=== PATIENT | female | born 1955 ===

== ENCOUNTER 2022-04-08 06:55 | Day surgery (SDC) | payer BC, SELFPAY ==
[2022-04-08] MEDS: Tropicam./Phenyleph. (1/2.5%) 5 ML BTL OD ×3 (07:19→07:32)
[2022-04-08 07:20] VITALS: BP 149/89; PULSE 56; RESP 16; TEMP 36.4; O2SAT 98
--- NOTE | 2022-04-08 07:34 | W.ANESPRE ---
General Info Date of Service Date Performed: 04/08/22 Height: 5 ft 1 in Weight: 74.4 kg Body Mass Index (BMI): 30.9 Surgical Procedure: Operation Date: 04/08/22 08:40 Proposed Procedure Side Surgeon p Cataract Extraction with IOL Implant Right Sly Ugalde MD Meds Allergies and Home Medications Allergies Allergy/AdvReac Type Severity Reaction Status Date / Time pregabalin AdvReac Mild Skin Rash Verified 04/08/22 07:16 Home Medication Medication Instructions Recorded acetaminophen 500 mg tablet 1,000 mg PO Q8H PRN 04/05/22 acyclovir 200 mg capsule 200 mg PO TID PRN 04/05/22 aspirin 81 mg tablet,delayed 81 mg PO DAILY 04/05/22 release fluticasone propionate 110 1 puff inhalation BID PRN 04/05/22 mcg/actuation HFA aerosol inhaler (Flovent HFA) ibuprofen 400 mg tablet 400 mg PO Q6H 04/05/22 latanoprost 0.005 % eye drops 1 drp ophthalmic (eye) QPM 04/05/22 omega-3 fatty acids 1,000 mg PO DAILY 04/05/22 pimecrolimus 1 % topical cream 1 applic topical BID 04/05/22 (Elidel) cholecalciferol (vitamin D3) 25 25 mcg PO DAILY 04/07/22 mcg (1,000 unit) capsule (Vitamin D3) Current Visit Medications: Current Medications Generic Name Dose Route Start Last Admin Trade Name Freq PRN Reason Stop Dose Admin Acetaminophen 1,000 mg 04/08/22 06:00 Acetaminophen 500 Mg Tab PO Q4H PRN PRN Miscellaneous Medication 0 ml 04/08/22 06:00 Prednisolone 1%, Moxifloxacin 0.5%, Nepafenac 0.1% 5ml Btl OD DIRECTED MARIEL Miscellaneous Medication 0 ml 04/08/22 06:00 04/08/22 07:32 Tropicam./Phenyleph. (1/2.5%) 5 Ml Btl OD 1 drp DIRECTED MARIEL Administration Tetracaine HCl 0 ml 04/08/22 06:00 Tetracaine 0.5% 4 Ml Btl OD DIRECTED MARIEL PFSH Medical History Medical History Acquired musculoskeletal deformity pt. denies Adjustment disorder with depressed mood Glaucoma Herpes simplex HTN (hypertension) Hyperglycemia Hyperlipidemia Lichen sclerosus et atrophicus Overweight Sleep disorder Tracheobronchitis Vitamin D deficiency Surgical History Surgical History (Updated 04/08/22 @ 07:17 by Adry Maradiaga) H/O colectomy History of knee surgery Right. S/P operative procedure on shoulder RTCR (R) Tobacco Smoking/Tobacco Use Status: Never Alcohol Alcohol Intake: current Alcohol intake frequency: a few times a week Alcohol type: beer, wine and hard liquor Substance Use Substance use: Never Substance use type: does not use Vital Signs and Lab Results Vital Signs Most Recent Vital Signs in EMR: Most Recent Vital Signs Temp Pulse Resp BP Pulse Ox 36.4 C L 56 L 16 149/89 H 98 04/08/22 07:20 04/08/22 07:20 04/08/22 07:20 04/08/22 07:20 04/08/22 07:20 Lab Results Blood Type / Crossmatch: No Data to Display Complete Blood Count: No Data to Display Complete Metabolic Panel: No Data to Display Liver Function Panel: No Data to Display Coagulation Panel: No Data to Display Cardiac Panel: No Data to Display Arterial Blood Gas: No Data to Display Venous Blood Gas: No Data to Display Pancreas Panel: No Data to Display Thyroid Panel: No Data to Display Infectious Disease: No Data to Display Blood Cultures: No Data to Display Toxicology Panel: No Data to Display Anesthesia Assessment and Plan Anesthesia History Personal History: PONV Family History: No Family History of Anesthesia Complications Exercise Tolerance Exercise Tolerance: Metabolic Equivalents>4 Pertinent Negatives Pertinent Negatives: No Symptoms of GERD, No Major Cardiovascular Symptoms or Complaints and No Major Pulmonary Symptoms or Complaints Cardiac & Pulmonary Exam Cardiac Exam: Normal S1/S2 Heart Sounds Pulmonary Exam: Clear Bilateral Breath Sounds Implantable Cardiac Device Does patient have a Pacemaker or an ICD?: No Airway Exam Known Difficult Airway: No Mallampati Class: 1 Mouth Opening: Normal (> 3cm) Thyromental Distance: Greater than 3 cm Neck Range of Motion: Full ROM Neck Circumference: Normal Teeth Condition: Normal Dentition ASA Classification ASA Score: ASA 2 Emergency Case?: No NPO Status NPO Status: NPO Clears >2 hours, Solids >8 hours Anesthesia Plan Resuscitation Status: Full Code Anesthesia Technique: MAC Anesthesia Airway Planned: Natural Airway Monitors Used: Standard Monitors
[2022-04-08 07:36] VITALS: BMI 30.9
[2022-04-08] MEDS: Tetracaine 0.5% 4 ML BTL OD (08:19)
[2022-04-08] MEDS: Balanced Salt Soln.-PLUS 500 ML BAG (08:20)
[2022-04-08] MEDS: Duovisc Viscoelastic System EACH 1 EACH (08:20)
[2022-04-08] MEDS: Lidocaine 2% Jelly 6 ML SYR (08:22)
[2022-04-08] MEDS: Povidone-Iodine Ophth 30 ML BTL (08:23)
[2022-04-08 08:39] VITALS: BP 145/79; PULSE 55; RESP 16; TEMP 36.4; O2SAT 100
--- NOTE | 2022-04-08 08:40 | PDOC.DSDIS_ITS ---
Discharge Plan Disposition Patient Disposition: HOME Condition: Good Discharge Details Attending Provider: Sly Ugalde Primary Care Provider: Tevin Gutierrez Medanales Meds and New Rx's Prescriptions: No Action latanoprost 0.005 % Drops 1 drp OPHTHALMIC (EYE) QPM pimecrolimus [Elidel] 1 % Cream 1 applic TOPICAL BID aspirin [Aspir-81] 81 mg Tablet,Delayed Release (Dr/Ec) 81 mg PO DAILY acetaminophen 500 mg Tablet 1,000 mg PO Q8H PRN ibuprofen 400 mg Tablet 400 mg PO Q6H acyclovir 200 mg Capsule 200 mg PO TID PRN fluticasone propionate [Flovent HFA] 110 mcg/actuation Hfa Aerosol Inhaler 1 puff INHALATION BID PRN Fish Oil Capsule 1,000 mg PO DAILY cholecalciferol (vitamin D3) [Vitamin D3] 25 mcg (1,000 unit) Capsule 25 mcg PO DAILY Discharge Instructions Stand Alone Forms: Post-op Topical Cataract, Peter Kruger ([facility]) Discharge Orders Discharge Orders: Discharge Order (Routine); Ordered 04/08/22 Ordered By: Sly Ugalde DS: Diagnosis Discharge Diagnosis (1) Cortical cataract of right eye: Status: Resolved (2) Nuclear sclerotic cataract of right eye: Status: Resolved (3) Posterior subcapsular age-related cataract, right eye: Status: Resolved
--- NOTE | 2022-04-08 08:41 | W.PM.OP ---
Date of service: 04/08/22 Time of Service: 08:41 Operative Note Operative Note DATE OF PROCEDURE: 04/08/22 PRE-OP DIAGNOSIS: Nuclear/cortical/posterior subcapsular cataract, right eye Pseudoexfoliation glaucoma, right eye POST-OP DIAGNOSIS: same PROCEDURE: Cataract extraction using phacoemulsification with intraocular lens implant, right eye SURGEON: Sly Ugalde ANESTHESIA TYPE: Local By Surgeon and MAC Refer to Anesthesia Record ESTIMATED BLOOD LOSS: 0 PATHOLOGY: none sent COMPLICATIONS: None Patient was transported to: same day Patient's condition: stable Implants: [employer]/TATI Tecnis [id number] Indications: Progressive visual loss due to cataract, right eye Procedure Description: CATARACT SURGERY OPERATIVE REPORT PREOPERATIVE DIAGNOSIS: 1. Nuclear/cortical/posterior subcapsular cataract, right eye Pseudoexfoliation glaucoma, right eye POSTOPERATIVE DIAGNOSIS: Same OPERATION: 1. Cataract extraction using phacoemulsification with posterior chamber intraocular lens implant, right eye. 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 The option of cataract surgery was offered to the patient and she wished to proceed. PROCEDURE: The correct surgical eye was identified and marked as the right eye and the pupil was dilated in the preoperative area using mydriatics and cycloplegics. The dilated pupil size was 6.5 mm. She elected to proceed without sedation. The patient was brought to the operating room where cardiopulmonary monitoring was instituted and surgical time-out was performed, confirming the correct operative eye and IOL power. Topical anesthesia was administered and ophthalmic povidone-iodine 5% was instilled into the conjunctival fornices. Lidocaine gel was applied to the cornea and the johnnie-ocular area was prepped with Betadine 10% solution and draped in the usual sterile fashion for intraocular surgery, including an aperture drape. A Tegaderm transparent film dressing was cut in half and used to cover the lashes and lid margins. Care was taken to sequester the lashes and lid margins under the Tegaderm dressing. A lid speculum was placed between the lids of the operative eye and the Russell Lux[employer] Rev[employer] operating microscope was maneuvered into position. Lane scissors were then used to make a conjunctival buttonhole approximately 6mm posterior to the limbus in the inferonasal quadrant. Blunt dissection was carried out to expose bare sclera, and a blunt-tipped sub-tenon?s anesthesia cannula was introduced and passed posteriorly along the globe where non-preserved plain lidocaine was injected into posterior sub-Tenon?s space. A sideport knife was used to make a paracentesis port inferotemporally. Intraocular phenylephrine/lidocaine was injected into the anterior chamber. The anterior chamber was filled with viscoelastic. A 2.4mm keratome knife was used to construct a 2-plane near-clear corneal tunnel extending 2.0mm into clear cornea superiortemporally. A flap was raised on the anterior capsule and capsulorhexis forceps were used to complete a continuous curvilinear capsulorhexis of 5.0 mm. A significant amount of pseudoexfoliation material was present on the anterior lens capsule, but the zonular integrity was good. Balanced salt solution was then used to perform cortical cleaving hydrodissection and nuclear hydrodelineation until the lens could be freely rotated within the capsular bag. The lens nucleus was then disassembled and removed within the capsular bag and iris plane using phacoemulsification. Residual cortical material was removed using the I/A handpiece. The posterior capsule was carefully polished to remove as much residual lens epithelial cells as safely possible. Fairly extensive polishing of the posterior capsule was done, there was some residual posterior subcapsular opacity temporally, just outside the visual axis which could not be safely removed. Extensive polishing of the underside of the anterior capsule was also undertaken in attempt to prevent capsular phimosis. The capsular bag was then inflated and the anterior chamber deepened with viscoelastic. The lens implant described above was inserted into the capsular bag using the TATI [place] Injector. A Kuglen hook was used to dial the IOL into position. Residual viscoelastic was then removed first from posterior to the IOL, then from the anterior chamber using the I/A handpiece. The lens implant was noted to center nicely within the capsular bag. The incisions were stromally hydrated, and the anterior chamber was reformed using BSS. Then 0.5cc of moxifloxacin 1.0mg/ml were injected into the capsular bag and anterior chamber. The incisions were checked with a Weck spear and found to be secure. Several drops of ophthalmic povidone-iodine 5% were then applied to the eye followed by two drops of Imprimis combination prednisolone/moxifloxacin/nepafenac solution. The drapes were removed and a clear plastic protective eye shield was placed over the eye. The patient was then returned to [facility] Day Surgery in stable condition.
--- NOTE | 2022-04-08 09:10 | W.ANESPOSTOP ---
Postoperative Evaluation Date, Time and Location Date Performed: 04/08/22 Time Performed: 08:45 Patient Location: Day Surgery Unit Vital Signs Most Recent Imported Vital Signs: Most Recent Vital Signs Temp Pulse Resp BP Pulse Ox 36.4 C L 55 L 16 145/79 H 100 04/08/22 08:39 04/08/22 08:39 04/08/22 08:39 04/08/22 08:39 04/08/22 08:39 Pain Score Most Recent Pain Score: Most Recent Pain Score Pain Level 0 04/08/22 08:39 Assessment Mental Status: Awake (Alert & Oriented to Patient Baseline) Airway and Respiratory Function: Patent airway with normal (patient baseline) respiratory exam Cardiovascular Function: Hemodynamically Stable Hydration Status: Adequately Hydrated Nausea & Vomiting: No Nausea or Vomiting Pain: Pt. Denies Any Pain Peripheral Nerve Block: Patient did not receive a nerve block
== END 2022-04-08 09:04 | disposition home or self-care (01) ==
PROVIDERS: PCP Family Medicine; Visit Provider Ophthalmology
PROC: (CPT 66984; principal; 2022-04-08 08:30)
DX: H25.041 Posterior subcapsular polar age-related cataract, right eye (principal); E78.5 Hyperlipidemia, unspecified; R73.9 Hyperglycemia, unspecified; E55.9 Vitamin D deficiency, unspecified
CPT/HCPCS: 66984; V2632